=== PATIENT | male | born 1990 | race Caucasian/White ===

== ENCOUNTER 2016-11-25 14:33 | Emergency (ER) | payer OTHER ==
[2016-11-25 14:39] VITALS: BP 127/71; PULSE 110; RESP 20; TEMP 98.6; O2SAT 94
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
== END 2016-11-25 15:35 | disposition home or self-care (01) ==
DX: T23.262A Burn of second degree of back of left hand, initial encounter (principal); Z87.891 Personal history of nicotine dependence; X12.XXXA Contact with other hot fluids, initial encounter; Y92.69 Other specified industrial and construction area as the place of occurrence of the external cause; Y99.0 Civilian activity done for income or pay

== ENCOUNTER 2017-08-19 13:22 | Emergency (ER) | payer OTHER ==
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
[2017-08-19 15:20] VITALS: BP 113/70
== END 2017-08-19 15:08 | disposition home or self-care (01) ==
LOC: CED 13:22
PROC: 0HQKXZZ Repair Right Lower Leg Skin, External Approach (ICD-10-PCS; principal; 2017-08-19)
DX: S91.011A Laceration without foreign body, right ankle, initial encounter (principal); F17.200 Nicotine dependence, unspecified, uncomplicated; W27.0XXA Contact with workbench tool, initial encounter; Y92.69 Other specified industrial and construction area as the place of occurrence of the external cause; Y99.0 Civilian activity done for income or pay; Y93.89 Activity, other specified